=== PATIENT | male | born 1965 | race Caucasian/White ===

== ENCOUNTER 2018-07-22 18:23 | Emergency (ER) | payer OTHER ==
[~2018-07-22] VITALS: Ht 170.2 cm; Wt 104.0 kg
[2018-07-22 18:42] VITALS: BP 142/82
[2018-07-22] MEDS ORDERED: KETOROLAC 60 MG/2 ML VIAL IM ONE (18:50)
[2018-07-22] MEDS ORDERED: DIAZEPAM 5 MG TAB PO ONE (19:25)
[2018-07-22 21:00] VITALS: BP 142/82
== END 2018-07-22 21:00 | disposition home or self-care (01) ==
LOC: MED 18:23
DX: M54.81 Occipital neuralgia (principal); M62.838 Other muscle spasm; E11.9 Type 2 diabetes mellitus without complications; I10 Essential (primary) hypertension; E78.00 Pure hypercholesterolemia, unspecified
CPT/HCPCS: 96372; 99283; J1885

== ENCOUNTER 2020-11-11 23:50 | Emergency (ER) | payer BC, OTHER ==
[~2020-11-11] VITALS: Ht 170.2 cm; Wt 95.7 kg
[2020-11-11 23:56] VITALS: BP 150/80
[2020-11-12] MEDS ORDERED: KETOROLAC 30 MG/ML VIAL IM ONE (00:30)
[2020-11-12] MEDS ORDERED: KETO10TA2 PO (00:32)
[2020-11-12] MEDS ORDERED: GABA-636 PO (00:32)
[2020-11-12 00:46] VITALS: BP 150/80
== END 2020-11-12 00:46 | disposition home or self-care (01) ==
LOC: MED 23:50
DX: M54.31 Sciatica, right side (principal); E11.9 Type 2 diabetes mellitus without complications; I10 Essential (primary) hypertension
CPT/HCPCS: 96372; 99283; J1885